=== PATIENT | female | born 1975 | race Caucasian/White ===

== ENCOUNTER 2022-11-09 13:08 | Outpatient (CLI) | payer OTHER | END 2022-11-09 13:21 | disposition home or self-care (01) | LOC: SONOGRAMA 13:08 | PROVIDERS: ATTEND Surgery | DX: C44.511 Basal cell carcinoma of skin of breast (principal) ==

== ENCOUNTER 2023-01-04 06:30 | Day surgery (SDC) | payer OTHER ==
[~2023-01-04] VITALS: Ht 157.5 cm; Wt 57.2 kg
== END 2023-01-04 16:30 | disposition home or self-care (01) ==
LOC: CIR.AMB 06:30
PROVIDERS: ATTEND Surgery
DX: N60.91 Unspecified benign mammary dysplasia of right breast (principal); N60.81 Other benign mammary dysplasias of right breast; D48.1 Neoplasm of uncertain behavior of connective and other soft tissue; I10 Essential (primary) hypertension; Z20.822 Contact with and (suspected) exposure to COVID-19; E04.1 Nontoxic single thyroid nodule; E78.2 Mixed hyperlipidemia; E11.9 Type 2 diabetes mellitus without complications; D24.1 Benign neoplasm of right breast
CPT/HCPCS: 19301; 19281; L8699